=== PATIENT | female | born 1940 ===

== ENCOUNTER → 2019-12-05 | Outpatient (CLI) | payer OTHER ==
[~2019-12-05] VITALS: Ht 162.6 cm; Wt 59.0 kg
[~2019-12-05] MED LIST: ALLERGY RELIEF10 M2 PO; HYDROCHLOROTH12.5 M1 PO; LEVO-T50 MCG PO; LISINOPRIL10 MG PO; PEPCID40 MG PO; PRAVACHOL40 MG PO; VITAMIN D3 COM1 EACH PO
--- NOTE | ~2019-12-05 | HPC ---
[facility] [place] [address] PAIN MANAGEMENT CONSULTATION Name: DOMINGUEZ PRUETT Room #: REG PATRICIO Anamika.#: [id number] Admission: 12/05/19 Attend Phys: Joe Rivera MD Discharge: Date of : 40 Report #: [id number] THIS REPORT FOR: cc: Catie Carlisle MD,Catie Rivera,Joe Ford MD ~ CC: Catie Rivera DATE OF SERVICE: 12/05/2019 CHIEF COMPLAINT: Low back pain radiating into the left leg with significant L4-L5 radiculopathy. This is a clara 79-year-old who I am seeing today at the request of Dr. Carlisle. She has sciatica, which began in May. It has really affected her day-to-day living and her pain impact scores are high for all activities including standing, walking, enjoyment of life. She scored highest for work inside the home. She describes her pain as steady, sharp, stabbing pain anywhere between a 4-6/10 on the intensity scale. She has tried some exercise, but the pain was too bad for her to continue. Pain drawing shows pain to be consistent with L4-L5 radiculopathy all the way down into the foot. MEDICATIONS: Levothyroxine, lisinopril, famotidine, hydrochlorothiazide, pravastatin. She takes supplements of vitamin D3, allergy relief and antihistamines. 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 Hypertension, hypothyroidism, and degenerative osteoarthritis. Multiple joints are affected. SOCIAL HISTORY: She is retired, . She is independent in most of her activities of daily living. She denies use of tobacco or alcohol. REVIEW OF SYSTEMS: Positive for some hearing loss and I had to speak up to talk with her. She has some nocturia and hypothyroidism. PHYSICAL EXAMINATION: GENERAL: She is very pleasant, slender female, 5 feet 4 inches. BMI 22.3. VITAL SIGNS: Blood pressure 122/71, heart rate 67, respirations 14, O2 sat 100, pain intensity 4. She moves independently from sitting to standing and is not a fall risk. [address] [address] PAIN MANAGEMENT CONSULTATION Name: DOMINGUEZ PRUETT Room #: REG [employer].#: [id number] Admission: 12/05/19 Attend Phys: Joe Rivera MD Discharge: Date of : 40 Report #: [id number] CHEST: Clear. CARDIAC: Rhythm is regular. NEUROLOGIC: She moves, however, with an antalgic gait. Straight leg raising reproduces pain in the sitting and supine position. Sensation is normal. Strength is normal. Deep tendon reflexes are trace and symmetrical at knees and ankles. X-rays reviewed and demonstrates evidence of an L4-L5 spinal stenosis with left lateral recess stenosis and mild left neural foraminal narrowing. The degenerative changes of her disk suggest that these are chronic changes and are now impinging upon the nerve root causing her radiculopathy. RECOMMENDATIONS: Transforaminal epidural injection at L4-L5 under fluoroscopic guidance. PROCEDURE: After informed consent, she was taken to fluoroscopic suite for procedure, placed prone, skin prepped with ChloraPrep. Skin anesthetized over the L4-L5 left neural foramen. Using triplanar fluoroscopic views, I advanced needle first attempt into the neural foramen. There was no paresthesia. I injected 0.25 mL of Omnipaque in an excellent epidurogram and spread into the epidural space along the L4 nerve root was obtained. It was followed then by 4 mL of 0.5% lidocaine mixed with 40 mg of triamcinolone. She tolerated the procedure well and there were no complications. She was observed for 45 minutes. Her pain score was 0 at discharge and followup visit planned in 1 month. By: [id number] Joe Rivera MD /nt
[2019-12-05 12:51] VITALS: BP 122/71
--- NOTE | 2019-12-05 13:11 | NUR ---
Pain Clinic Assessment: 1. History of Osteoarthritis: BACK HANDS History of Rheumatoid Arthritis: Not Applicable 2. Height: 5 ft. 4 in. 162.6 cm. Weight: 130.0 lb. oz. 58.968 kg. Patient's BMI: 22.3 3. Vital Signs: BP: 122/71 Pulse: 67 Resp: 14 Temp: 02 Sat: 100 ECG Mon: 4. Pain Intensity: 4 5. Fall Risk: Dizziness: N Needs help standing or walking: N Fallen in the last 3 months: N Fall risk comments: 6. Patient on Blood Thinner: None 7. History of Hypertension: Y 8. Opioid Therapy greater than 6 weeks: N Opiate Contract Signed: 9. Risk Assessment Tool Provided: low 0 10. Functional Assessment Tool: 11. Recreational Drug Use: Never Drug Type: Tobacco Use: Never Smoker Tobacco Type: Amount or Packs/day: How Many Years: Alcohol Use: No Frequency: Quant:
== END | disposition home or self-care (01) ==
LOC: PAIN 06:47
DX: M54.16 Radiculopathy, lumbar region (principal); I10 Essential (primary) hypertension; E03.9 Hypothyroidism, unspecified; M19.90 Unspecified osteoarthritis, unspecified site; K21.9 Gastro-esophageal reflux disease without esophagitis; M81.0 Age-related osteoporosis without current pathological fracture; Z98.890 Other specified postprocedural states; Z79.899 Other long term (current) drug therapy; Z91.041 Radiographic dye allergy status

== ENCOUNTER → 2020-04-09 | Outpatient (CLI) | payer OTHER ==
[~2020-04-09] VITALS: Ht 162.6 cm; Wt 59.3 kg
[~2020-04-09] MED LIST changes: +TYLENOL EXTRA500 MG PO
[2020-04-09 10:04] VITALS: BP 135/75
--- NOTE | 2020-04-09 10:15 | NUR ---
Pain Clinic Assessment: 1. History of Osteoarthritis: BACK HANDS History of Rheumatoid Arthritis: Not Applicable 2. Height: 5 ft. 4 in. 162.6 cm. Weight: 130.8 lb. oz. 59.330 kg. Patient's BMI: 22.4 3. Vital Signs: BP: 135/75 Pulse: 63 Resp: 14 Temp: 02 Sat: 100 ECG Mon: 4. Pain Intensity: 3 5. Fall Risk: Dizziness: N Needs help standing or walking: N Fallen in the last 3 months: N Fall risk comments: 6. Patient on Blood Thinner: None 7. History of Hypertension: Y 8. Opioid Therapy greater than 6 weeks: N Opiate Contract Signed: 9. Risk Assessment Tool Provided: low 0 10. Functional Assessment Tool: 11. Recreational Drug Use: Never Drug Type: Tobacco Use: Never Smoker Tobacco Type: Amount or Packs/day: How Many Years: Alcohol Use: No Frequency: Quant:
--- NOTE | 2020-04-12 09:57 | HPC ---
[facility] [place] [address] PAIN MANAGEMENT CONSULTATION Name: DOMINGUEZ PRUETT Room #: REG PATRICIO M..#: [id number] Admission: 04/09/20 Attend Phys: Joe Rivera MD Discharge: Date of : 40 Report #: [id number] THIS REPORT FOR: cc: Catie Carlisle MD,Catie Rivera,Joe Fodr MD ~ CC: Catie Rivera DATE OF SERVICE: 04/09/2020 Followup visit for low back pain with radiculopathy radiating through the left L4-L5 distribution. L4-L5 spinal stenosis. The patient received a single epidural injection using a transforaminal approach several months ago. She did get a response for about 3-4 weeks, but the pain then returned and over the course of the last 3 weeks, the pain has really gotten quite significant. She scores the pain with standing and weightbearing as a high intensity. When she is sitting, it is not too bad, it is 3/10. She is here today hopeful for additional options and treatment. She is continuing to exercise and walk, but is finding it more difficult with the intensity of pain. Remember this all began after she fell at the gym in 2019. PQRS: Reviewed. It shows that she does have other osteoarthritis including spondylosis and arthritis of the hands. She is 5 feet 4 inches, 130 pounds, BMI of 22.4, blood pressure 135/75, heart rate 63, respirations 14, O2 sat 100, pain intensity 3/10. She is not a fall risk and has not fallen in the last 3 months. She is on no blood thinners. She does have a history of hypertension. Dr. Carlisle provides all of her medicines including hydrochlorothiazide, pravastatin, famotidine, lisinopril, levothyroxine, loratadine, and acetaminophen. She is not taking an opioid, but as all our patients do, she has completed an opioid risk tool to evaluate for potential addiction and her score is 0. Her functional assessment score is 36. She denies tobacco and alcohol. PHYSICAL EXAMINATION: VITAL SIGNS: As noted. MUSCULOSKELETAL: Reveals tenderness across the lumbosacral spine and positive straight leg raising test on the left that radiates into the left hip. It follows an L4-L5 distribution and goes as far as the anterior part of her lower leg and foot. She complains of some mild numbness and weakness. Deep tendon reflexes are diminished consistently throughout the lower extremities at knee and ankle and bilateral. IMPRESSION: Lumbar radiculopathy related to spinal stenosis, L4-L5. PROCEDURE: Epidural steroid injection under fluoroscopic guidance. [address] [address] PAIN MANAGEMENT CONSULTATION Name: DOMINGUEZ PRUETT Room #: REG CLRubio Aguirre#: [id number] Admission: 04/09/20 Attend Phys: Joe Rivera MD Discharge: Date of : 40 Report #: [id number] After informed consent, she was taken to the fluoroscopic suite, placed prone. Instead of using a transforaminal approach, we used a midline approach, just left paramedian. A 20-gauge Tuohy epidural needle was advanced in the epidural space in the first attempt. Unfortunately, blood was aspirated suggesting venous placement of the needle. The needle was withdrawn and a second needle repositioned in the epidural space again just to the left of midline. There was no blood aspirated or CSF on this attempt. After negative aspiration, I injected 0.25 mL of Omnipaque. She has a contrast allergy. No more dye was necessary. Good epidurogram was achieved and it was followed by 3 mL of 0.5% lidocaine mixed with 80 mg triamcinolone. She tolerated the procedure well. There were no complications. She was taken to recovery room for observation for a short time and then discharged. Followup visit scheduled in our pain clinic in 2-3 months. We may consider further injections depending on her response. <ELECTRONICALLY SIGNED> By: Joe Rivera MD 04/12/20 [id number] Joe Rivera MD /nt
== END | disposition home or self-care (01) ==
LOC: PAIN 06:52
PROVIDERS: ATTEND Anesthesiology Pain Medicine
DX: M48.061 Spinal stenosis, lumbar region without neurogenic claudication (principal); M54.16 Radiculopathy, lumbar region; G89.29 Other chronic pain; Z98.890 Other specified postprocedural states; Z79.899 Other long term (current) drug therapy; Z91.041 Radiographic dye allergy status